=== PATIENT | female | born 1995 | race Caucasian/White ===

== ENCOUNTER 2023-06-12 11:36 | Outpatient (CLI) | payer BC, SELFPAY | END 2023-06-12 11:37 | disposition home or self-care (01) | LOC: FBOREF 11:36 | PROVIDERS: PCP Family Medicine; Visit Provider Family Medicine | DX: H66.91 Otitis media, unspecified, right ear (principal); H72.91 Unspecified perforation of tympanic membrane, right ear; B95.0 Streptococcus, group A, as the cause of diseases classified elsewhere | CPT/HCPCS: 87070; 87186 ==